=== PATIENT | female | born 1955 | race Caucasian/White ===

== ENCOUNTER 2019-05-31 14:28 | Emergency (ER) | payer MEDICAID ==
[~2019-05-31] VITALS: Ht 172.7 cm; Wt 61.2 kg
[2019-05-31 14:52] LABS: *BILIRUBIN,URIN NEGATIVE (NEGATIVE); *BLOOD, URINE 3+ (NEGATIVE); *CLARITY,URINE CLOUDY (CLEAR); *COLOR,URINE Orange (YELLOW); *KETONES,URINE NEGATIVE (NEGATIVE); LEUKOCYTE ESTERASE ,URINE 3+ (NEGATIVE); NITRITE, URINE POSITIVE (NEGATIVE); PH,URINE 8.5 (5.0-8.0); UGLUCOSE TRACE (NEGATIVE)
[2019-05-31] MEDS ORDERED: NORVASC (15:00)
[2019-05-31] MEDS ORDERED: LIPITOR (15:00)
[2019-05-31] MEDS ORDERED: LEVOTHYROXINE (15:00)
[2019-05-31 15:01] LABS: RBC,URINE 80-100 /HPF (0-3); WBC,URINE TNTC /HPF (0-3)
[2019-05-31 15:02] LABS: SQUAMOUS EPITHELIAL CELL,UR FEW /HPF (NONE SEEN)
--- NOTE | 2019-05-31 15:33 | NUR ---
Patient discharged to home in stable conditon. Written and verbal after care instructions given. Patient verbalizes understanding of instructions. Patient ambulated with stable gait.
[2019-05-31 15:35] VITALS: BP 118/81
== END 2019-05-31 15:35 | disposition home or self-care (01) ==
LOC: ER 14:28
DX: N39.0 Urinary tract infection, site not specified (principal); E78.5 Hyperlipidemia, unspecified; E03.9 Hypothyroidism, unspecified; Z79.899 Other long term (current) drug therapy
CPT/HCPCS: 87086; A4663